=== PATIENT | female | born 1940 | race Caucasian/White ===

== ENCOUNTER 2018-09-08 20:06 | Inpatient (IN) | payer MEDICARE, BC ==
[2018-09-08 21:34] LABS: ADD MAN DIFF? NO
[2018-09-08 21:36] LABS: WHITE BLOOD COUNT 6.6 10^3/ul (4.8-10.8)
[2018-09-08 21:36] LABS: BASOPHILS % 0.3 % (0.0-2.0); EOSINOPHILS % 0.2 % (0.0-7.0); HEMATOCRIT 45.8 % (37.0-47.0); HEMOGLOBIN 15.5 g/dl (12.0-16.0); LYMPHOCYTES % 14.5 % (15.0-51.0); MEAN CORPUSCULAR HEMOGLOBIN 32.8 pg (29.0-33.0); MEAN CORPUSCULAR HGB CONC 33.8 g/dl (32.0-37.0); MEAN CORPUSCULAR VOLUME 96.8 fl (82.0-101.0); MEAN PLATELET VOLUME 10.3 fl (7.4-10.4); MONOCYTE # 0.4 10^3/ul (0.3-0.9); MONOCYTES % 6.5 % (0.0-11.0); NEUTROPHIL # 5.2 10^3/ul (1.6-7.5); NEUTROPHILS % 78.2 % (39.0-77.0); PLATELET COUNT 177 10^3/UL (140-415); RED BLOOD COUNT 4.73 10^6/ul (4.20-5.40)
[2018-09-08 21:54] LABS: ALANINE AMINOTRANSFERASE 46 IU/L (13-69); ALBUMIN 4.4 g/dl (3.3-4.9); ALBUMIN/GLOBULIN RATIO 1.25; ALKALINE PHOSPHATASE 56 IU/L (42-121); ANION GAP 10 (5-13); ASPARTATE AMINO TRANSFERASE 51 IU/L (15-46); BILIRUBIN,INDIRECT 1.2 mg/dl (0-1.1); BILIRUBIN,TOTAL 1.2 mg/dl (0.2-1.3); BLOOD UREA NITROGEN 28 mg/dl (7-20); CALCIUM 10.6 mg/dl (8.4-10.2); CARBON DIOXIDE 35 mmol/L (21-31); CHLORIDE 104 mmol/L (97-110); CREATININE 0.32 mg/dl (0.44-1.00); GLUCOSE 109 mg/dl (70-220); LIPASE 108 U/L (23-300); POTASSIUM 3.5 mmol/L (3.5-5.1); SODIUM 149 mmol/L (135-144); TOTAL PROTEIN 7.9 g/dl (6.1-8.1)
[2018-09-08 22:05] LABS: TROPONIN-I 0.015 ng/ml (0.000-0.120)
[2018-09-08] MEDS: SOD CHLORIDE 0.9% 500 ML IV (22:41)
[2018-09-09] MEDS ORDERED: NACL 0.9% 3 ML SYG IV (01:00)
[2018-09-09] MEDS: DEXTROSE 5%-0.45% NACL 1,000 ML IV ×2 (03:38→10:53)
[2018-09-09] MEDS: LORAZEPAM 2 MG INJ IV ×2 (05:13→20:25)
[2018-09-09 05:23] LABS: ADD MAN DIFF? NO
[2018-09-09 05:31] LABS: WHITE BLOOD COUNT 5.8 10^3/ul (4.8-10.8)
[2018-09-09 05:31] LABS: BASOPHILS % 0.3 % (0.0-2.0); HEMATOCRIT 43.3 % (37.0-47.0); HEMOGLOBIN 14.7 g/dl (12.0-16.0); LYMPHOCYTES # 0.9 10^3/ul (0.8-2.9); LYMPHOCYTES % 15.7 % (15.0-51.0); MEAN CORPUSCULAR HEMOGLOBIN 33.1 pg (29.0-33.0); MEAN CORPUSCULAR HGB CONC 33.9 g/dl (32.0-37.0); MEAN CORPUSCULAR VOLUME 97.5 fl (82.0-101.0); MEAN PLATELET VOLUME 10.9 fl (7.4-10.4); MONOCYTE # 0.3 10^3/ul (0.3-0.9); MONOCYTES % 5.9 % (0.0-11.0); NEUTROPHIL # 4.5 10^3/ul (1.6-7.5); NEUTROPHILS % 77.8 % (39.0-77.0); PLATELET COUNT 154 10^3/UL (140-415); RED BLOOD COUNT 4.44 10^6/ul (4.20-5.40); RED CELL DISTRIBUTION WIDTH 13.8 % (11.5-14.5)
[2018-09-09 05:53] LABS: ALANINE AMINOTRANSFERASE 43 IU/L (13-69); ALBUMIN 3.9 g/dl (3.3-4.9); ALBUMIN/GLOBULIN RATIO 1.25; ALKALINE PHOSPHATASE 48 IU/L (42-121); ANION GAP 7 (5-13); ASPARTATE AMINO TRANSFERASE 46 IU/L (15-46); BLOOD UREA NITROGEN 26 mg/dl (7-20); CALCIUM 9.9 mg/dl (8.4-10.2); CARBON DIOXIDE 34 mmol/L (21-31); CHLORIDE 107 mmol/L (97-110); CHOL/HDL RATIO 2.8 RATIO; CHOLESTEROL 135 mg/dl (100-200); CREATININE 0.28 mg/dl (0.44-1.00); GLUCOSE 135 mg/dl (70-220); HDL CHOLESTEROL 48 mg/dl (33-92); LDL CHOLESTEROL,CALCULATED 75 mg/dl; MAGNESIUM 2.2 mg/dl (1.7-2.5); PHOSPHORUS 3.3 mg/dl (2.5-4.9); POTASSIUM 3.4 mmol/L (3.5-5.1); SODIUM 148 mmol/L (135-144); TRIGLYCERIDES 62 mg/dl (0-149)
[2018-09-09 08:11] LABS: HEMOGLOBIN A1C 4.7 % (0-5.9)
[2018-09-09] MEDS: FAMOTIDINE 20 MG INJ IV ×2 (09:49→20:23)
[2018-09-09] MEDS: HEPARIN 5,000 UNIT/1 ML VIAL SC ×2 (09:52→20:34)
[2018-09-09] MEDS: hydrALAzine 20 MG INJ IV ×2 (10:47→20:24)
[2018-09-09] MEDS: D5W-0.45 NACL + KCL 20 MEQ 1,000 ML IV ×2 (12:06→21:30)
[2018-09-09 12:47] LABS: ADD UMIC NO; UR ASCORBIC ACID 40 mg/dL (NEGATIVE); UR BILIRUBIN (Dip) NEGATIVE (NEGATIVE); UR BLOOD (Dip) NEGATIVE (NEGATIVE); UR CLARITY CLEAR (CLEAR); UR COLOR YELLOW (YELLOW); UR GLUCOSE (Dip) NEGATIVE (NEGATIVE); UR KETONES (Dip) TRACE mg/dL (NEGATIVE); UR LEUKOCYTE ESTERASE (Dip) NEGATIVE Leu/ul (NEGATIVE); UR NITRITE (Dip) NEGATIVE (NEGATIVE); UR SPECIFIC GRAVITY (Dip) 1.021 (1.003-1.030); UR TOTAL PROTEIN (Dip) NEGATIVE (NEGATIVE); UR UROBILINOGEN (Dip) 2+ mg/dL (NEGATIVE)
[2018-09-09] MEDS: IOHEXOL 300MG/ML 150 ML BTL (13:05)
[2018-09-09] MEDS: SOD CHLORIDE 0.9% 100 ML (13:05)
[2018-09-09] MEDS: POTASSIUM CHLORIDE 100 ML IVPB (13:59)
[2018-09-10 05:18] LABS: ADD MAN DIFF? NO
[2018-09-10 05:26] LABS: WHITE BLOOD COUNT 9.6 10^3/ul (4.8-10.8)
[2018-09-10 05:26] LABS: BASOPHILS % 0.3 % (0.0-2.0); EOSINOPHILS % 0.1 % (0.0-7.0); HEMATOCRIT 45.4 % (37.0-47.0); HEMOGLOBIN 15.3 g/dl (12.0-16.0); LYMPHOCYTES # 0.9 10^3/ul (0.8-2.9); LYMPHOCYTES % 9.6 % (15.0-51.0); MEAN CORPUSCULAR HGB CONC 33.7 g/dl (32.0-37.0); MEAN CORPUSCULAR VOLUME 97.8 fl (82.0-101.0); MEAN PLATELET VOLUME 10.7 fl (7.4-10.4); MONOCYTE # 0.7 10^3/ul (0.3-0.9); MONOCYTES % 6.8 % (0.0-11.0); NEUTROPHIL # 7.9 10^3/ul (1.6-7.5); NEUTROPHILS % 82.8 % (39.0-77.0); PLATELET COUNT 165 10^3/UL (140-415); RED BLOOD COUNT 4.64 10^6/ul (4.20-5.40); RED CELL DISTRIBUTION WIDTH 14.6 % (11.5-14.5)
[2018-09-10] MEDS: D5W-0.45 NACL + KCL 20 MEQ 1,000 ML IV ×2 (05:48→17:52)
[2018-09-10] MEDS: LORAZEPAM 2 MG INJ IV ×2 (05:49→17:51)
[2018-09-10 05:55] LABS: ANION GAP 4 (5-13); BLOOD UREA NITROGEN 13 mg/dl (7-20); CALCIUM 10.1 mg/dl (8.4-10.2); CARBON DIOXIDE 33 mmol/L (21-31); CHLORIDE 107 mmol/L (97-110); CREATININE 0.21 mg/dl (0.44-1.00); GLUCOSE 103 mg/dl (70-220); PHOSPHORUS 2.3 mg/dl (2.5-4.9); POTASSIUM 3.7 mmol/L (3.5-5.1); SODIUM 144 mmol/L (135-144)
[2018-09-10] MEDS: hydrALAzine 20 MG INJ IV ×2 (08:29→15:54)
[2018-09-10] MEDS: FAMOTIDINE 20 MG INJ IV ×2 (08:33→20:41)
[2018-09-10] MEDS: HEPARIN 5,000 UNIT/1 ML VIAL SC ×2 (08:39→20:43)
[2018-09-11 02:14] LABS: TROPONIN-I 0.026 ng/ml (0.000-0.120)
[2018-09-11] MEDS: D5W-0.45 NACL + KCL 20 MEQ 1,000 ML IV ×3 (03:45→23:21)
[2018-09-11 06:26] LABS: CHOLESTEROL 108 mg/dl (100-200)
[2018-09-11 06:26] LABS: CHOL/HDL RATIO 2.3 RATIO; HDL CHOLESTEROL 46 mg/dl (33-92); LDL CHOLESTEROL,CALCULATED 51 mg/dl; TRIGLYCERIDES 55 mg/dl (0-149)
[2018-09-11] MEDS: FAMOTIDINE 20 MG INJ IV ×2 (09:11→20:56)
[2018-09-11] MEDS: HEPARIN 5,000 UNIT/1 ML VIAL SC ×2 (09:12→20:57)
[2018-09-11] MEDS: morphine 2 MG INJ IV (21:32)
[2018-09-12 06:35] LABS: INR 1.07; PT RATIO 1.1
[2018-09-12] MEDS: FAMOTIDINE 20 MG INJ IV ×2 (09:03→21:07)
[2018-09-12] MEDS: hydrALAzine 20 MG INJ IV (09:04)
[2018-09-12] MEDS: HEPARIN 5,000 UNIT/1 ML VIAL SC ×2 (09:07→21:13)
[2018-09-12] MEDS: D5W-0.45 NACL + KCL 20 MEQ 1,000 ML IV ×3 (09:30→19:30)
[2018-09-12] MEDS: morphine 2 MG INJ IV ×2 (11:20→17:33)
[2018-09-12] MEDS: LIDOCAINE 2% (SDV) 5 ML INJ (16:12)
[2018-09-12] MEDS: PROPOFOL 20 ML (16:12)
[2018-09-12] MEDS: FENTAnyl 50 MCG/ML VIAL (16:16)
[2018-09-12] MEDS ORDERED: PHENYLephrine (100 MCG/ML) 10ML SYG (16:29)
[2018-09-12] MEDS ORDERED: ONDANSETRON 4 MG INJ IV (16:30)
[2018-09-12] MEDS ORDERED: HYDROmorphONE 1 MG/5 ML IV SYRINGE IV ×2 (16:30)
[2018-09-12] MEDS ORDERED: FENTAnyl 50 MCG/ML VIAL IV (16:30)
[2018-09-12] MEDS: ESMOLOL 10 ML (16:32)
[2018-09-12] MEDS: ONDANSETRON 4 MG INJ IV (17:33)
[2018-09-12] MEDS: SODIUM PHOSPHATE 15 MMOL in SOD CHLORIDE 0.9% 250 ML IV (19:03)
[2018-09-12] MEDS: BENAZEPRIL 10 MG TAB PO (21:07)
[2018-09-12] MEDS: SOD CHLORIDE 0.9% 250 ML IV (22:28)
[2018-09-12] MEDS ORDERED: SOD CHLORIDE 0.9% 250 ML IV (22:30)
[2018-09-13] MEDS: ALPRAZOLAM 0.25 MG TAB GTB ×2 (02:28→22:58)
[2018-09-13] MEDS: morphine 2 MG INJ IV ×3 (05:04→23:17)
[2018-09-13] MEDS: D5W-0.45 NACL + KCL 20 MEQ 1,000 ML IV ×3 (05:05→18:03)
[2018-09-13] MEDS: SUMATRIPTAN 6 MG/0.5 ML INJ SC (07:26)
[2018-09-13] MEDS: BENAZEPRIL 10 MG TAB PO ×2 (09:00→20:59)
[2018-09-13] MEDS: FAMOTIDINE 20 MG INJ IV ×2 (09:24→20:59)
[2018-09-13] MEDS: HEPARIN 5,000 UNIT/1 ML VIAL SC ×2 (09:27→21:00)
[2018-09-13] MEDS ORDERED: ONDANSETRON 4 MG INJ IV (12:30)
[2018-09-13] MEDS: METOCLOPRAMIDE 10 MG INJ IV ×2 (12:39→18:05)
[2018-09-13] MEDS: SOD CHLORIDE 0.9% 500 ML IV (12:39)
[2018-09-13] MEDS: LEVALBUTEROL (NEB) 0.63 MG/3 ML AMP HHN ×2 (13:45→19:52)
[2018-09-14] MEDS: METOCLOPRAMIDE 10 MG INJ IV ×3 (00:30→12:16)
[2018-09-14] MEDS: D5W-0.45 NACL + KCL 20 MEQ 1,000 ML IV ×3 (01:30→14:37)
[2018-09-14] MEDS: LEVALBUTEROL (NEB) 0.63 MG/3 ML AMP HHN ×3 (01:44→16:00)
[2018-09-14 05:46] LABS: ADD MAN DIFF? NO
[2018-09-14 05:51] LABS: WHITE BLOOD COUNT 10.2 10^3/ul (4.8-10.8)
[2018-09-14 05:51] LABS: BASOPHILS % 0.1 % (0.0-2.0); HEMATOCRIT 39.9 % (37.0-47.0); HEMOGLOBIN 13.3 g/dl (12.0-16.0); LYMPHOCYTES # 0.6 10^3/ul (0.8-2.9); LYMPHOCYTES % 6.3 % (15.0-51.0); MEAN CORPUSCULAR HEMOGLOBIN 32.8 pg (29.0-33.0); MEAN CORPUSCULAR HGB CONC 33.3 g/dl (32.0-37.0); MEAN CORPUSCULAR VOLUME 98.5 fl (82.0-101.0); MEAN PLATELET VOLUME 10.7 fl (7.4-10.4); MONOCYTE # 0.6 10^3/ul (0.3-0.9); NEUTROPHIL # 8.9 10^3/ul (1.6-7.5); NEUTROPHILS % 87.3 % (39.0-77.0); PLATELET COUNT 152 10^3/UL (140-415); RED BLOOD COUNT 4.05 10^6/ul (4.20-5.40)
[2018-09-14 06:11] LABS: ALANINE AMINOTRANSFERASE 31 IU/L (13-69); ALBUMIN 2.8 g/dl (3.3-4.9); ALBUMIN/GLOBULIN RATIO 1.03; ALKALINE PHOSPHATASE 48 IU/L (42-121); ANION GAP 0 (5-13); ASPARTATE AMINO TRANSFERASE 21 IU/L (15-46); BILIRUBIN,INDIRECT 0.5 mg/dl (0-1.1); BILIRUBIN,TOTAL 0.5 mg/dl (0.2-1.3); BLOOD UREA NITROGEN 6 mg/dl (7-20); CALCIUM 9.3 mg/dl (8.4-10.2); CARBON DIOXIDE 37 mmol/L (21-31); CHLORIDE 101 mmol/L (97-110); CREATININE 0.19 mg/dl (0.44-1.00); GLUCOSE 141 mg/dl (70-220); SODIUM 138 mmol/L (135-144); TOTAL PROTEIN 5.5 g/dl (6.1-8.1)
[2018-09-14 06:12] LABS: MAGNESIUM 1.9 mg/dl (1.7-2.5)
[2018-09-14 06:12] LABS: PHOSPHORUS 1.8 mg/dl (2.5-4.9)
[2018-09-14 06:23] LABS: FREE T4 (FREE THYROXINE) 0.95 ng/dl (0.78-2.44)
[2018-09-14 07:30] LABS: TRIIODOTHYRONINE 0.68 ng/ml (0.97-1.69)
[2018-09-14 08:17] LABS: POTASSIUM 4.2 mmol/L (3.5-5.1)
[2018-09-14] MEDS: BENAZEPRIL 10 MG TAB PO (09:22)
[2018-09-14] MEDS: FAMOTIDINE 20 MG INJ IV ×2 (09:22→20:48)
[2018-09-14] MEDS: HEPARIN 5,000 UNIT/1 ML VIAL SC ×2 (09:24→20:57)
[2018-09-14] MEDS: ACETAMINOPHEN 650MG/20.3ML CUP GTB (12:17)
[2018-09-14] MEDS: morphine 2 MG INJ IV (19:49)
[2018-09-14] MEDS: hydrALAzine 20 MG INJ IV (20:48)
[2018-09-15] MEDS: LEVALBUTEROL (NEB) 0.63 MG/3 ML AMP HHN ×3 (00:10→16:16)
[2018-09-15] MEDS: BENAZEPRIL 10 MG TAB PO ×3 (01:29→21:11)
[2018-09-15] MEDS: ALBUTEROL/IPRATROPIUM (NEB) 3 ML AMP HHN (04:29)
[2018-09-15] MEDS: D5W-0.45 NACL + KCL 20 MEQ 1,000 ML IV (05:39)
[2018-09-15 05:54] LABS: ADD MAN DIFF? NO
[2018-09-15 05:58] LABS: ABNORMAL IP MESSAGE 1; BASOPHILS % 0.1 % (0.0-2.0); HEMATOCRIT 39.8 % (37.0-47.0); HEMOGLOBIN 13.4 g/dl (12.0-16.0); LYMPHOCYTES # 0.6 10^3/ul (0.8-2.9); LYMPHOCYTES % 6.8 % (15.0-51.0); MEAN CORPUSCULAR HEMOGLOBIN 32.4 pg (29.0-33.0); MEAN CORPUSCULAR HGB CONC 33.7 g/dl (32.0-37.0); MEAN CORPUSCULAR VOLUME 96.4 fl (82.0-101.0); MEAN PLATELET VOLUME 10.8 fl (7.4-10.4); MONOCYTE # 0.5 10^3/ul (0.3-0.9); MONOCYTES % 6.2 % (0.0-11.0); NEUTROPHIL # 7.2 10^3/ul (1.6-7.5); NEUTROPHILS % 86.5 % (39.0-77.0); PLATELET COUNT 179 10^3/UL (140-415); RED BLOOD COUNT 4.13 10^6/ul (4.20-5.40); RED CELL DISTRIBUTION WIDTH 14.6 % (11.5-14.5)
[2018-09-15 05:58] LABS: WHITE BLOOD COUNT 8.3 10^3/ul (4.8-10.8)
[2018-09-15 06:02] LABS: POSITIVE DIFF @See below
[2018-09-15 06:20] LABS: PHOSPHORUS 1.2 mg/dl (2.5-4.9)
[2018-09-15 06:20] LABS: MAGNESIUM 1.9 mg/dl (1.7-2.5)
[2018-09-15 06:26] LABS: ANION GAP 0 (5-13); BLOOD UREA NITROGEN 10 mg/dl (7-20); CALCIUM 9.2 mg/dl (8.4-10.2); CARBON DIOXIDE 39 mmol/L (21-31); CHLORIDE 95 mmol/L (97-110); CREATININE 0.18 mg/dl (0.44-1.00); GLUCOSE 152 mg/dl (70-220); POTASSIUM 4.1 mmol/L (3.5-5.1); SODIUM 134 mmol/L (135-144)
[2018-09-15] MEDS: FAMOTIDINE 20 MG INJ IV (09:13)
[2018-09-15] MEDS: DOCUSATE SODIUM 100 MG CAP PO (09:13)
[2018-09-15] MEDS: HEPARIN 5,000 UNIT/1 ML VIAL SC ×2 (09:16→21:15)
[2018-09-15] MEDS: ASA/ACETAMINOPHEN/CAFF TAB PO (09:18)
[2018-09-15] MEDS: SODIUM PHOSPHATE 15 MMOL in SOD CHLORIDE 0.9% 250 ML IVPB (11:51)
[2018-09-15 15:40] LABS: D-DIMER 425.72 ng/ml (<460)
[2018-09-15] MEDS: METOPROLOL (XL) 25 MG TAB PO (18:40)
[2018-09-15 18:47] LABS: D-DIMER 489.82 ng/ml (<460)
[2018-09-15] MEDS: ALPRAZOLAM 0.25 MG TAB GTB (19:59)
[2018-09-15] MEDS: FAMOTIDINE 20 MG TAB PO (21:11)
[2018-09-15] MEDS: CEFEPIME 1GM/50 ML (PMX) 50 ML IVPB (21:12)
[2018-09-16] MEDS: LEVALBUTEROL (NEB) 0.63 MG/3 ML AMP HHN ×3 (00:25→17:38)
[2018-09-16] MEDS: hydrALAzine 20 MG INJ IV ×2 (03:18→21:17)
[2018-09-16] MEDS: CEFEPIME 1GM/50 ML (PMX) 50 ML IVPB ×2 (08:23→21:16)
[2018-09-16] MEDS: BENAZEPRIL 10 MG TAB PO ×2 (08:25→21:17)
[2018-09-16] MEDS: METOPROLOL (XL) 25 MG TAB PO (08:26)
[2018-09-16] MEDS: FAMOTIDINE 20 MG TAB PO ×2 (08:27→21:16)
[2018-09-16] MEDS: HEPARIN 5,000 UNIT/1 ML VIAL SC ×2 (08:30→21:24)
[2018-09-16] MEDS: ALPRAZOLAM 0.25 MG TAB GTB (13:40)
[2018-09-16] MEDS: GUAIFENESIN LA 600 MG TABSR PO ×2 (16:40→21:17)
[2018-09-16] MEDS: ASA/ACETAMINOPHEN/CAFF TAB PO (16:40)
[2018-09-16] MEDS ORDERED: DOCUSATE SODIUM 100 MG CAP PO (21:00)
[2018-09-16] MEDS: clonAZEPAM 0.5 MG TAB GTB (21:16)
[2018-09-16] MEDS: DOCUSATE SODIUM 10 MG/ML (10ML CUP) GTB (21:16)
[2018-09-16] MEDS: MIRTAZAPINE 15 MG TAB GTB (21:17)
[2018-09-17] MEDS: LEVALBUTEROL (NEB) 0.63 MG/3 ML AMP HHN ×2 (00:52→07:23)
[2018-09-17 01:45] LABS: AADO2 Arterial 86.1 mmHg (7.0-24.0); Arterial Blood Gas Oxygen Sat 92.8 mmHG (95.0-100.0); Arterial COHb 0.1 % (0.0-3.0); Arterial Fraction of Oxyhgb 92.6 % (93.0-99.0); Arterial HCO3 40.8 mmol/L (22.0-26.0); Arterial MetHb 0.1 % (0.0-1.5); Arterial pCO2 71.5 mmhg (35-45); MODE NASAL CANNULA; Site LB
[2018-09-17 04:18] LABS: AADO2 Arterial 255.8 mmHg (7.0-24.0); Arterial Base Excess 10.3 mmol/L (-3.0-3); Arterial Blood Gas Oxygen Sat 98.8 mmHG (95.0-100.0); Arterial COHb 0.3 % (0.0-3.0); Arterial Fraction of Oxyhgb 98.3 % (93.0-99.0); Arterial HCO3 36.1 mmol/L (22.0-26.0); Arterial MetHb 0.2 % (0.0-1.5); Arterial pCO2 52.4 mmhg (35-45); Blood Gas IEPAP 18/5; Blood Gas PS 8; MODE MASK - BIPAP; Site Right Brachial
[2018-09-17 05:40] LABS: ADD MAN DIFF? NO
[2018-09-17 06:00] LABS: WHITE BLOOD COUNT 8.1 10^3/ul (4.8-10.8)
[2018-09-17 06:00] LABS: BASOPHILS % 0.1 % (0.0-2.0); HEMATOCRIT 40.2 % (37.0-47.0); HEMOGLOBIN 13.7 g/dl (12.0-16.0); LYMPHOCYTES # 0.9 10^3/ul (0.8-2.9); LYMPHOCYTES % 11.5 % (15.0-51.0); MEAN CORPUSCULAR HGB CONC 34.1 g/dl (32.0-37.0); MEAN CORPUSCULAR VOLUME 96.9 fl (82.0-101.0); MEAN PLATELET VOLUME 10.2 fl (7.4-10.4); MONOCYTE # 0.8 10^3/ul (0.3-0.9); MONOCYTES % 9.4 % (0.0-11.0); NEUTROPHIL # 6.3 10^3/ul (1.6-7.5); NEUTROPHILS % 78.6 % (39.0-77.0); PLATELET COUNT 274 10^3/UL (140-415); RED BLOOD COUNT 4.15 10^6/ul (4.20-5.40); RED CELL DISTRIBUTION WIDTH 14.4 % (11.5-14.5)
[2018-09-17 06:19] LABS: ANION GAP 5 (5-13); BLOOD UREA NITROGEN 20 mg/dl (7-20); CALCIUM 9.3 mg/dl (8.4-10.2); CARBON DIOXIDE 40 mmol/L (21-31); CHLORIDE 90 mmol/L (97-110); CREATININE 0.27 mg/dl (0.44-1.00); GLUCOSE 115 mg/dl (70-220); PHOSPHORUS 2.3 mg/dl (2.5-4.9); POTASSIUM 4.1 mmol/L (3.5-5.1); SODIUM 135 mmol/L (135-144)
[2018-09-17] MEDS: GUAIFENESIN LA 600 MG TABSR PO (10:04)
[2018-09-17] MEDS: CEFEPIME 1GM/50 ML (PMX) 50 ML IVPB ×2 (10:04→22:03)
[2018-09-17] MEDS: DOCUSATE SODIUM 10 MG/ML (10ML CUP) GTB ×2 (10:04→22:02)
[2018-09-17] MEDS: BENAZEPRIL 10 MG TAB PO (10:04)
[2018-09-17] MEDS: FAMOTIDINE 20 MG TAB PO (10:04)
[2018-09-17] MEDS: METOPROLOL (XL) 25 MG TAB PO (10:05)
[2018-09-17] MEDS: HEPARIN 5,000 UNIT/1 ML VIAL SC ×2 (10:07→22:04)
[2018-09-17] MEDS: ARFORMOTEROL TARTRATE 15MCG/2 ML AMP NEB ×2 (11:00→21:45)
[2018-09-17] MEDS: ALPRAZOLAM 0.25 MG TAB GTB (12:01)
[2018-09-17] MEDS: hydrALAzine 20 MG INJ IV (14:13)
[2018-09-17] MEDS: SODIUM PHOSPHATE 15 MMOL in SOD CHLORIDE 0.9% 250 ML IVPB (16:56)
[2018-09-17] MEDS: ASA/ACETAMINOPHEN/CAFF TAB PO (17:01)
[2018-09-17] MEDS ORDERED: METOPROLOL 50 MG TAB PO (21:00)
[2018-09-17] MEDS ORDERED: GUAIFENESIN/DM 5ML CUP GTB (21:30)
[2018-09-17] MEDS: MIRTAZAPINE 15 MG TAB GTB (22:02)
[2018-09-18] MEDS: ALBUTEROL/IPRATROPIUM (NEB) 3 ML AMP HHN ×2 (04:58→11:44)
[2018-09-18 06:02] LABS: ADD MAN DIFF? NO
[2018-09-18 06:14] LABS: WHITE BLOOD COUNT 6.6 10^3/ul (4.8-10.8)
[2018-09-18 06:14] LABS: BASOPHILS % 0.3 % (0.0-2.0); EOSINOPHILS % 0.2 % (0.0-7.0); HEMATOCRIT 39.7 % (37.0-47.0); HEMOGLOBIN 13.2 g/dl (12.0-16.0); LYMPHOCYTES # 0.7 10^3/ul (0.8-2.9); LYMPHOCYTES % 10.5 % (15.0-51.0); MEAN CORPUSCULAR HEMOGLOBIN 33.1 pg (29.0-33.0); MEAN CORPUSCULAR HGB CONC 33.2 g/dl (32.0-37.0); MEAN CORPUSCULAR VOLUME 99.5 fl (82.0-101.0); MEAN PLATELET VOLUME 10.1 fl (7.4-10.4); MONOCYTE # 0.5 10^3/ul (0.3-0.9); MONOCYTES % 8.1 % (0.0-11.0); NEUTROPHIL # 5.4 10^3/ul (1.6-7.5); NEUTROPHILS % 80.6 % (39.0-77.0); PLATELET COUNT 313 10^3/UL (140-415); RED BLOOD COUNT 3.99 10^6/ul (4.20-5.40); RED CELL DISTRIBUTION WIDTH 14.6 % (11.5-14.5)
[2018-09-18 06:31] LABS: BLOOD UREA NITROGEN 20 mg/dl (7-20); CALCIUM 9.4 mg/dl (8.4-10.2); CHLORIDE 91 mmol/L (97-110); CREATININE 0.18 mg/dl (0.44-1.00); GLUCOSE 145 mg/dl (70-220); POTASSIUM 4.1 mmol/L (3.5-5.1); SODIUM 134 mmol/L (135-144)
[2018-09-18 07:34] LABS: ANION GAP 7 (5-13)
[2018-09-18 07:37] LABS: CARBON DIOXIDE 36 mmol/L (21-31)
[2018-09-18] MEDS: ARFORMOTEROL TARTRATE 15MCG/2 ML AMP NEB (08:00)
[2018-09-18] MEDS: DOCUSATE SODIUM 10 MG/ML (10ML CUP) GTB (08:20)
[2018-09-18] MEDS: BENAZEPRIL 10 MG TAB GTB (08:21)
[2018-09-18] MEDS: CEFEPIME 1GM/50 ML (PMX) 50 ML IVPB (08:21)
[2018-09-18] MEDS: FAMOTIDINE 20 MG TAB GTB (08:21)
[2018-09-18] MEDS: METOPROLOL 50 MG TAB GTB (08:21)
[2018-09-18] MEDS: HEPARIN 5,000 UNIT/1 ML VIAL SC (08:26)
[2018-09-18] MEDS ORDERED: METOPROLOL (XL) 25 MG TAB PO (09:00)
== END 2018-09-18 19:10 | DRG 391 ==
LOC: 2NE 23:02 → E/R 20:06 → 2NE 09-09 22:55
PROC: 0DJ08ZZ Inspection of Upper Intestinal Tract, Via Natural or Artificial Opening Endoscopic (ICD-10-PCS; principal; 2018-09-12 16:08)
PROC: 0DH63UZ Insertion of Feeding Device into Stomach, Percutaneous Approach (ICD-10-PCS; 2018-09-12 16:08)
DX: R13.10 Dysphagia, unspecified (principal); E43 Unspecified severe protein-calorie malnutrition; J96.01 Acute respiratory failure with hypoxia; J69.0 Pneumonitis due to inhalation of food and vomit; R64 Cachexia; Z68.1 Body mass index [BMI] 19.9 or less, adult; I45.2 Bifascicular block; E87.0 Hyperosmolality and hypernatremia; N39.0 Urinary tract infection, site not specified; F41.9 Anxiety disorder, unspecified; R62.7 Adult failure to thrive; E87.6 Hypokalemia; M06.9 Rheumatoid arthritis, unspecified; K44.9 Diaphragmatic hernia without obstruction or gangrene; K29.70 Gastritis, unspecified, without bleeding; J34.2 Deviated nasal septum; Z60.2 Problems related to living alone; D44.6 Neoplasm of uncertain behavior of carotid body; I10 Essential (primary) hypertension; E04.2 Nontoxic multinodular goiter; E83.39 Other disorders of phosphorus metabolism; E86.0 Dehydration; B95.1 Streptococcus, group B, as the cause of diseases classified elsewhere
CPT/HCPCS: 36415; 36600; 70491; 71045; 71250; 73100; 74176; 76536; 80048; 80053; 80061; 81003; 82803; 83036; 83690; 83735; 84100; 84439; 84443; 84480; 84484; 85025; 85378; 85610; 87040-91; 87086; 92610; 93005; 93306; 93970; 94640; 94660; 94664; 97110; 97162; 99285-25